=== PATIENT | female | born 1980 | race Caucasian/White ===

== ENCOUNTER 2023-10-22 07:48 | Outpatient (CLI) | payer BC, SELFPAY ==
--- NOTE | 2023-10-22 08:00 | CT_ITS ---
Patient: HIEN RIDDLE Facility:?[facility] Patient ID:?[id number] Site Patient ID:?[id number]. Site :?[id number] Study:?CT-Sinus -10/22/2023 8:15:00 AM Ordering Physician:?DR. BASURTO Final Report: ddIndication: Drainage, sinusitis Technique: CT of the paranasal sinuses without contrast. Coronal and sagittal reformatted images. Bone and soft tissue algorithms. Comparison: 07/30/2023 CT Findings: Frontal sinuses: Improved opacification of the frontal sinuses with moderate right mild left residual mucosal thickening. Ethmoid air cells: Improved opacification of the ethmoid air cells with residual [id number] opacification on the right side and mild opacification on the left side. Symmetric depths of the olfactory fossa. The anterior ethmoidal arteries are course through pneumatized air cells. Sphenoid sinuses: Significantly improved opacification of the left sphenoid sinus with mild residual mucosal thickening bilaterally. No optic canal or carotid canal dehiscence. Maxillary sinuses: Significantly improved opacification in both maxillary sinuses with mild polypoid mucosal thickening remaining in both maxillary sinuses.. The osteomeatal units are clear. Nasal cavity: Rightward deviation of the nasal septum. No yann bullosa. No paradoxical turbinates. Skullbase, maxilla, TMJ: No lytic or blastic osseous lesions. No periapical tooth lucencies. Mastoid air cells are clear. A 1 cm lucency in the right frontal bone likely represents incidental hemangioma. Orbital contents: Unremarkable Imaged intracranial contents: Unremarkable Imaged soft tissues structures: Unremarkable IMPRESSION: 1. Significant improvement of pansinusitis with mild residual mucosal thickening in the maxillary and sphenoid sinuses, [id number] residual ethmoid sinus disease and moderate residual right frontal sinus disease. The ostiomeatal units are now patent bilaterally. 2. The mastoid air cells and middle ear cavities remain clear. Please note that all CT scans at this facility use dose modulation, iterative reconstruction, and/or weight-based dosing when appropriate to reduce radiation dose to as low as reasonably achievable. Dictated by Narinder Neville MD @ 10/22/2023 3:14:43 PM Signed by:?Narinder Neville MD @10/22/2023 3:14:43 PM (Electronic Signature)
== END 2023-10-22 07:49 | disposition home or self-care (01) ==
LOC: CT 07:49
PROVIDERS: PCP Family Medicine; Visit Provider Otolaryngology
DX: J32.9 Chronic sinusitis, unspecified (principal); J32.0 Chronic maxillary sinusitis; J32.3 Chronic sphenoidal sinusitis
CPT/HCPCS: 70486